=== PATIENT | female | born 1970 ===

== ENCOUNTER 2016-11-11 10:43 | Observation (INO) | payer SELFPAY ==
--- NOTE | 2016-11-11 11:23 | ED PDOC ---
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) Onset/Duration Of Symptoms: Days (7), Intermittent Episodes Current Symptoms Are (Timing): Intermittent Episodes Severity: Moderate Pain Scale Rating Of: 5 Quality: Burning, "Pain" Associated Symptoms: denies: Nausea, Dyspnea, Diaphoresis, Syncope Exacerbating Factors: None Alleviating Factors: None - Risk Factors PE Risk Factors: Neg: Extremity Immobilization/Fx, Decreased Mobilty /Activity, Recent Major Surgery, Recent Hospitalization, Active Cancer, Previous DVT, Previous PE, CHF, Venous Stasis, Estrogen Usage, , Post-, Recent Major Trauma TAD Risk Factors: Neg: Hypertension, Aortic Valve Disease, Active , Sudden Onset Of Pain, Migration Of Pain, New Neurologic Symptoms <Haley Andrade - Last Filed: 11/11/16 12:57> <Mae Kaba - Last Filed: 11/11/16 15:59> Time Seen by Provider: 11/11/16 11:04 Chief Complaint (Nursing): Chest Pain Additional Complaint(s): 46 yo F with PMH of anemia sent by PMD for eval of chest pain. Pt states she has been having intermittent chest pain x 1 week, located in left side of chest , nonradiating, described as burning. No exacerbating or alleviating factors. Pt reports prior hx of chest pain once in the past, 3 months ago when pt was hospitalized for severe anemia. Denies any other medical problems. Nonsmoker. No family hx of cardiac dz. Pt states pain comes and goes and at times is associated with mild dizziness. Has not taken any medication for these symptoms. States when she feels the chest pain/burning, she drinks water and symptoms resolve after some time, spontaneously. (Haley Andrade) Supervising Attending Note - Supervising Attending Note The Documented history was done by the: Physician Supervisor [employer], Attending Physician The documented physical exam was done by the: Physician Supervisor [employer], Attending Physician The documented procedures were done by the: Physician Supervisor [employer], Attending Physician - Attestation: I have personally seen and examined this patient.: Yes I have fully participated in the care of the patient.: Yes I have reviewed all pertinent clinical information: Yes <Mae Kaba - Last Filed: 11/11/16 15:59> Past Medical History Reviewed: Historical Data, Nursing Documentation, Vital Signs - Medical History PMH: Anemia (iron deficiency) - Surgical History Surgical History: - Family History Family History: States: Unknown Family Hx <Haley Andrade - Last Filed: 11/11/16 12:57> <Mae Kaba - Last Filed: 11/11/16 15:59> Vital Signs: Last Vital Signs Temp 97.1 F L 11/11/16 10:53 Pulse 57 L 11/11/16 13:51 Resp 16 11/11/16 13:51 BP 142/90 11/11/16 13:51 Pulse Ox 96 11/11/16 13:00 - Home Medications Home Medications: Ambulatory Orders Medication Instructions Recorded Ferrous Sulfate [Feosol] 325 mg PO BID 11/11/16 - Allergies Allergies/Adverse Reactions: Allergies Allergy/AdvReac Type Severity Reaction Status Date / Time No Known Allergies Allergy Verified 11/11/16 10:53 AMBAR Risk Score for UA/NSTEMI - AMBAR Risk Score Age > 64: NO 3 or more CAD Risk Factors: NO Known CAD (Stenosis greater than 50%): NO Aspirin use in past 7 days: NO Severe Angina: NO EKG ST changes greater than 0.5mm: NO Positive Cardiac Marker: NO AMBAR Score: 0 Risk %: 5% <Haley Andrade - Last Filed: 11/11/16 12:57> Wells Criteria for PE - Wells Criteria for Pulmonary Embolism Clinical Signs and Symptoms of DVT: No P.E is #1 Diagnosis, or Equally Likely: No Heart Rate >100: No Immobilization at least 3 days;Surgery previous 4 weeks: No Previous, objectively diagnosed PE or DVT: No Hemoptysis: No Malignancy w/treatment within 6 months, or palliative: No Total Score: 0 <Haley Andrade - Last Filed: 11/11/16 12:57> Review of Systems Constitutional: Negative for: Fever, Chills Cardiovascular: Positive for: Chest Pain. Negative for: Palpitations Respiratory: Negative for: Cough, SOB with Exertion, Pleuritic Pain Gastrointestinal: Negative for: Nausea, Vomiting, Diarrhea Genitourinary Female: Negative for: Dysuria Musculoskeletal: Negative for: Neck Pain Neurological: Negative for: Weakness, Numbness <RaymondHaley - Last Filed: 11/11/16 12:57> Physical Exam - Reviewed Nursing Documentation Reviewed: Yes Vital Signs Reviewed: Yes - Physical Exam Appears: Positive for: Non-toxic, No Acute Distress Head Exam: Positive for: NORMAL INSPECTION Skin: Positive for: Normal Color, Warm, Dry. Negative for: Diaphoresis Eye Exam: Positive for: Normal appearance ENT: Positive for: Normal ENT Inspection Neck: Positive for: Normal, Painless ROM, Supple Cardiovascular/Chest: Positive for: Regular Rate, Rhythm, Chest Non Tender. Negative for: Gallop, JVD, Murmur, Irregularly Irregular Respiratory: Positive for: Normal Breath Sounds. Negative for: Crackles, Rales , Rhonchi, Wheezing Gastrointestinal/Abdominal: Positive for: Normal Exam, Bowel Sounds (+), Soft. Negative for: Tenderness Extremity: Negative for: Pedal Edema, Calf Tenderness Neurologic/Psych: Positive for: Alert, Oriented <AndradeHaley - Last Filed: 11/11/16 12:57> - Laboratory Results Result Diagrams: 11/11/16 11:43 11/11/16 11:43 - ECG ECG: Positive for: Interpreted By Me, Viewed By Me (d/w Dr. Kaba) Interpretation Of Abn EKG: nonspecific T wave inversions in II, III, aVF, V1, V3 Rate: 57 O2 Sat by Pulse Oximetry: 96 <AndradeJeanineHaley - Last Filed: 11/11/16 12:57> - Laboratory Results Result Diagrams: 11/11/16 11:43 11/11/16 11:43 <Mae Kaba - Last Filed: 11/11/16 15:59> - Progress ED Course And Treament: EKG CXR CBC CMP Troponin Reeval 12:45pm Labs reviewed - Hgb 14, normal Troponin negative CXR no acute disease EKG compared to prior from 08/2016; no T wave inversions in inferior leads in prior EKG Tele observation for further eval/workup Called vice president marketing & development, will admit pt (Haley Andrade) Disposition - Patient ED Disposition Is Patient to be Admitted: Yes - Disposition Disposition Time: 13:00 <Haley Andrade - Last Filed: 11/11/16 12:57> - Patient ED Disposition Is Patient to be Admitted: Yes Discussed With : Jonh Chaudhari Doctor Will See Patient In The: ED Counseled Patient/Family Regarding: Studies Performed, Diagnosis - Pt Status Changed To: Hospital Disposition Of: Observation - POA Present On Arrival: None Core Measure Indicators: Chest Pain <Mae Kaba - Last Filed: 11/11/16 15:59> - Clinical Impression Clinical Impression: Chest pain - Disposition Condition: FAIR
[2016-11-11 11:49] LABS: BASO % 0.9 % (0.0-2.0); EOS # 0.1 K/uL (0.0-0.7); EOS % 2.6 % (0.0-4.0); HEMATOCRIT 42.4 % (34.0-47.0); LYMPH # 1.6 K/uL (1.0-4.3); LYMPH % 40.6 % (20.0-40.0); MEAN CORPUSCULAR HEMOGLOBIN 30.1 pg (27.0-31.0); MEAN PLATELET VOLUME 8.2 fl (7.2-11.7); MONO # 0.4 K/uL (0.0-0.8); MONO % 9.3 % (0.0-10.0); NEUT # 1.8 K/uL (1.8-7.0); NEUT % 46.6 % (50.0-75.0); NRBC % 0.3 % (0.0-0.0); RED CELL DISTRIBUTION WIDTH 16.3 % (11.5-14.5); WHITE BLOOD COUNT 3.9 K/uL (4.8-10.8)
[2016-11-11 11:50] LABS: MEAN CELL VOLUME 91.3 fl (81.0-99.0)
[2016-11-11 12:01] LABS: ALB/GLOB RATIO 1.3 (1.0-2.1); ALKALINE PHOSPHATASE 53 U/L (38-126); ALT/SGPT 37 U/L (9-52); AST/SGOT 29 U/L (14-36); BILIRUBIN,TOTAL 0.3 mg/dl (0.2-1.3); BLOOD UREA NITROGEN 12 mg/dl (7-17); CALCIUM 9.3 mg/dL (8.4-10.2); CARBON DIOXIDE 23 mmol/L (22-30); CHLORIDE 106 mmol/L (98-107); GFR AFRICAN-AMERICAN > 60; GLUCOSE,RANDOM 85 mg/dL (65-105); POTASSIUM 4.1 MMOL/L (3.6-5.0); SODIUM 139 mmol/l (132-148); TOTAL PROTEIN 8.1 G/DL (6.3-8.2)
--- NOTE | 2016-11-11 13:24 | RAD ---
HISTORY: chest pain COMPARISON: No prior. TECHNIQUE: Chest PA and lateral FINDINGS: LUNGS: No active pulmonary disease. PLEURA: No significant pleural effusion identified. No pneumothorax apparent. CARDIOVASCULAR: Normal. OSSEOUS STRUCTURES: No significant abnormalities. VISUALIZED UPPER ABDOMEN: Normal. OTHER FINDINGS: None. IMPRESSION: No active disease.
--- NOTE | 2016-11-11 14:58 | CP.PCM.HP ---
History of Present Illness - History of Present Illness History of Present Illness: This is a 46 y/o female with PMHx of Chronic anemia, Uterine fibroids associated with menorrhagia, who presents complaining of one week left sided, intermittent, burning quality chest pain, no radiating, that started suddenly, as high as 8/10, no aggravated with exertion, no alleviated with rest, but mild relieved with she took Tylenol once, however a second time that she took Tylenol she did not have any relief. Denies nausea, vomiting, SOB, abdominal pain, acid reflux, bitter taste in mouth, recent cold like symptoms, positional changes or changes with respiration or other complains. Patient went to see her PCP at [facility], Dr. Munoz today because her complains, she was sent by PMD to ED for evaluation. PMD: Dr. Pee Grady @ [facility] Allergies: NKDA PMHx: as HPI, s/p 3 units PRBC transfusion and one Iron infusion on previous admission(08/2016) SHx: 1 C- section; Right knee hematoma removal s/p fall Meds:Ferrous Sulfate 325 mg BID GYNHx: LMP: 10/26/16, heavy blood loss during periods, lasting x 6-12 days ED course: VS: 97.1 F, HR: 60/min, BP: 150/92, RR: 19/min, 96 % O2 sat EKG CBC, CMP, troponin I Oxygen by NC, emergency telecommunications dispatcher continuos, aspirin 325 mg stat Present on Admission - Present on Admission Any Indicators Present on Admission: No History of DVT/PE: No History of Uncontrolled Diabetes: No Urinary Catheter: No Decubitus Ulcer Present: No Review of Systems - Review of Systems All systems: reviewed and no additional remarkable complaints except (as per HPI ) Past Patient History - Past Medical History & Family History Past Medical History?: No - Past Social History Smoking Status: Never Smoked - HEMATOLOGICAL/ONCOLOGICAL Hx Blood Disorders: Yes (anemia) - MUSCULOSKELETAL/RHEUMATOLOGICAL Hx Falls: No - PSYCHIATRIC Hx Substance Use: No - SURGICAL HISTORY Hx Surgeries: No - ANESTHESIA Hx Anesthesia: Yes Hx Anesthesia Reactions: No Meds Allergies/Adverse Reactions: Allergies Allergy/AdvReac Type Severity Reaction Status Date / Time No Known Allergies Allergy Verified 11/11/16 10:53 Physical Exam - Constitutional Appears: Non-toxic, No Acute Distress - Eye Exam Eye Exam: Normal appearance - ENT Exam ENT Exam: Mucous Membranes Moist - Respiratory Exam Respiratory Exam: Clear to Auscultation Bilateral, NORMAL BREATHING PATTERN - Cardiovascular Exam Cardiovascular Exam: REGULAR RHYTHM, RRR, +S1, +S2 - GI/Abdominal Exam GI & Abdominal Exam: Normal Bowel Sounds, Soft. absent: Distended, Rigid, Tenderness - Extremities Exam Extremities exam: Positive for: normal inspection. Negative for: calf tenderness, pedal edema - Back Exam Back exam: NORMAL INSPECTION. absent: CVA tenderness (L), CVA tenderness (R) - Neurological Exam Neurological exam: Alert, Oriented x3 - Psychiatric Exam Psychiatric exam: Normal Affect, Normal Mood - Skin Skin Exam: Dry, Intact, Normal Color - Additional Findings Additional findings: Mild tenderness to palpation of left upper chest, no rash, vesicles or lesions noted on overlying skin Results - Vital Signs Recent Vital Signs: Last Vital Signs Temp 97.1 F L 11/11/16 10:53 Pulse 57 L 11/11/16 13:51 Resp 16 11/11/16 13:51 BP 142/90 11/11/16 13:51 Pulse Ox 96 11/11/16 13:00 - Labs Result Diagrams: 11/11/16 11:43 11/11/16 11:43 Assessment & Plan - Assessment and Plan (Free Text) Assessment: 46 y/o female with PMHx of Chronic anemia, Uterine fibroids associated with menorrhagia, presenting with one week history of left sided chest pain admitted to r/o ACS. Plan: Atypical chest pain R/O Acute coronary syndrome -Improved since presentation, now asymptomatic -EKG at ED showed multiple leads with T wave inversion, no ST changes noted -Good oxygen Saturation in room air -s/p Aspirin 325 mg PO once STAT at ED -Troponin I at ED was negative -F/U Troponin I x 2 -F/U clinical status -CBC:WNL, except for mild decreased WBC -CMP: WNL Leucopenia in CBC -Afebrile, no S/S of immunosupression -F/U repeat CBC: WBC H/O Chronic anemia -Resolved -Most likely was secondary to Uterine fibroid associated to Menorrhagia -c/w Ferrous sulfate 325 mg PO BID - Date & Time Date: 11/11/16 Time: 15:00
[2016-11-12 06:07] VITALS: RESP 18
[2016-11-12 07:09] LABS: BASO % 1.2 % (0.0-2.0); EOS # 0.1 K/uL (0.0-0.7); EOS % 3.4 % (0.0-4.0); HEMATOCRIT 43.3 % (34.0-47.0); LYMPH % 50.6 % (20.0-40.0); MEAN CELL VOLUME 91.5 fl (81.0-99.0); MEAN CORPUSCULAR HEMOGLOBIN 29.9 pg (27.0-31.0); MEAN CORPUSCULAR HGB CONC 32.6 g/dL (33.0-37.0); MEAN PLATELET VOLUME 8.7 fl (7.2-11.7); MONO # 0.4 K/uL (0.0-0.8); MONO % 10.6 % (0.0-10.0); NEUT # 1.4 K/uL (1.8-7.0); NEUT % 34.2 % (50.0-75.0); NRBC % 0.1 % (0.0-0.0); RED CELL DISTRIBUTION WIDTH 16.1 % (11.5-14.5)
[2016-11-12 08:23] VITALS: BP 114/74; PULSE 62; TEMP 98.3; O2SAT 98
--- NOTE | 2016-11-12 09:37 | CP.PCM.DIS ---
Provider - Provider Date of Admission: 11/11/16 12:56 Attending physician: Cherie Howe MD Time Spent in preparation of Discharge (in minutes): 30 Diagnosis - Discharge Diagnosis (1) Chest pain Status: Acute Priority: High Comment: ACS was ruled out during current admission, most likely musculoskeletal etiology. Asymtomatic. F/U with PMD was recommended. Prescription for treadmill stress test was given. (2) History of anemia Status: Chronic Priority: Low Comment: Resolved. Asymptomatic. H/H was WNL. Ferrous sulfate was stopped. Hospital Course - Lab Results Lab Results: Most Recent Lab Values WBC 4.0 K/uL (4.8-10.8) L 11/12/16 05:45 RBC 4.74 Mil/uL (3.80-5.20) 11/12/16 05:45 Hgb 14.1 g/dL (12.0-16.0) 11/12/16 05:45 Hct 43.3 % (34.0-47.0) 11/12/16 05:45 MCV 91.5 fl (81.0-99.0) 11/12/16 05:45 MCH 29.9 pg (27.0-31.0) 11/12/16 05:45 MCHC 32.6 g/dL (33.0-37.0) L 11/12/16 05:45 RDW 16.1 % (11.5-14.5) H 11/12/16 05:45 Plt Count 231 K/uL (130-400) 11/12/16 05:45 MPV 8.7 fl (7.2-11.7) 11/12/16 05:45 Neut % (Auto) 34.2 % (50.0-75.0) L 11/12/16 05:45 Lymph % (Auto) 50.6 % (20.0-40.0) H 11/12/16 05:45 [place] % (Auto) 10.6 % (0.0-10.0) H 11/12/16 05:45 Eos % (Auto) 3.4 % (0.0-4.0) 11/12/16 05:45 Baso % (Auto) 1.2 % (0.0-2.0) 11/12/16 05:45 Neut # 1.4 K/uL (1.8-7.0) L 11/12/16 05:45 Lymph # 2.0 K/uL (1.0-4.3) 11/12/16 05:45 [place] # 0.4 K/uL (0.0-0.8) 11/12/16 05:45 Eos # 0.1 K/uL (0.0-0.7) 11/12/16 05:45 Baso # 0.0 K/uL (0.0-0.2) 11/12/16 05:45 Sodium 139 mmol/l (132-148) 11/11/16 11:43 Potassium 4.1 MMOL/L (3.6-5.0) 11/11/16 11:43 Chloride 106 mmol/L (98-107) 11/11/16 11:43 Carbon Dioxide 23 mmol/L (22-30) 11/11/16 11:43 Anion Gap 14 (10-20) 11/11/16 11:43 BUN 12 mg/dl (7-17) 11/11/16 11:43 Creatinine 0.8 mg/dL (0.7-1.2) 11/11/16 11:43 Est GFR ( Amer) > 60 11/11/16 11:43 Est GFR (Non-Af Amer) > 60 11/11/16 11:43 Random Glucose 85 mg/dL (65-105) 11/11/16 11:43 Calcium 9.3 mg/dL (8.4-10.2) 11/11/16 11:43 Total Bilirubin 0.3 mg/dl (0.2-1.3) 11/11/16 11:43 AST 29 U/L (14-36) 11/11/16 11:43 ALT 37 U/L (9-52) 11/11/16 11:43 Alkaline Phosphatase 53 U/L (38-126) 11/11/16 11:43 Troponin I < 0.0120 ng/mL (0.00-0.120) 11/12/16 05:45 Total Protein 8.1 G/DL (6.3-8.2) 11/11/16 11:43 Albumin 4.6 g/dL (3.5-5.0) 11/11/16 11:43 Globulin 3.5 gm/dL (2.2-3.9) 11/11/16 11:43 Albumin/Globulin Ratio 1.3 (1.0-2.1) 11/11/16 11:43 - Hospital Course Hospital Course: This is 46 y/o female with PMHx of Uterine fibroids associated with Menorrhagia , and resolved chronic anemia secondary to heavy menstrual periods who presented to ED complaining of chest pain. EKG done showed diffuse T wave inversion, but no ST changes, and patient was admitted for observation to r/o ACS. During admission vital signs were WNL, labs unremarkable, and Troponin x 3 negative. Patient was managed aspirin and Nitroglycerin sublingual as needed. ACS was ruled out during admission. Patient was seen and examined at bedside this morning. Patient denies chest pain, SOB, nausea, vomiting or any complains. Patient is stable to be discharge home today and will follow with PMD at [facility] and prescription for treadmill stress test as outpatient was provided. Home medication: None. Discontinued Ferrous sulfate due to H/H: WNL. No continued on aspirin PO because patient is low risk for CAD, will follow up as outpatient. - Date & Time of H&P Date of H&P: 11/11/16 Time of H&P: 14:55 Discharge Exam - Head Exam Head Exam: NORMAL INSPECTION - ENT Exam ENT Exam: Mucous Membranes Moist - Respiratory Exam Respiratory Exam: Clear to PA & Lateral, NORMAL BREATHING PATTERN, UNREMARKABLE - Cardiovascular Exam Cardiovascular Exam: REGULAR RHYTHM, +S1, +S2 - GI/Abdominal Exam GI & Abdominal Exam: Normal Bowel Sounds, Soft. absent: Tenderness - Extremities Exam Additional comments: No edema in lower extremities. No calf tenderness noted. Ellen's sign negative bilateral. Peripheral pulses present and bilateral. - Neurological Exam Neurological exam: Alert, Oriented x3 - Psychiatric Exam Psychiatric exam: Normal Affect, Normal Mood - Skin Skin Exam: Dry, Intact, Normal Color - Additional Findings Additional findings: Mild tenderness to palpation of left upper chest. Pain reproduced with palpation. Discharge Plan - Follow Up Plan Condition: FAIR Disposition: HOME/ ROUTINE Instructions: Chest Pain (DC) Additional Instructions: -F/U with PMD at [facility], Dr. Pee Grady as outpatient -F/U with Cardiology for Treadmill Stress test as outpatient
--- NOTE | 2016-11-12 13:41 | CARD ---
APPROVED REPORT EKG Measurement Heart [id number] <Conclusion> Sinus bradycardia Left axis deviation Incomplete right bundle branch block T wave abnormality, consider lateral ischemia Abnormal ECG
== END 2016-11-12 15:15 | disposition home or self-care (01) ==
LOC: H.ER 10:43 → H.ERHOLD 12:56 → H.TEL 14:29
PROVIDERS: ADMIT Family Medicine Geriatric Medicine; ATTEND Family Medicine Geriatric Medicine
DX: R07.9 Chest pain, unspecified (principal); D25.9 Leiomyoma of uterus, unspecified; D50.9 Iron deficiency anemia, unspecified; D72.819 Decreased white blood cell count, unspecified; N92.0 Excessive and frequent menstruation with regular cycle

== ENCOUNTER 2017-11-29 18:17 | Emergency (ER) | payer OTHER, SELFPAY ==
[2017-11-29 18:17] VITALS: BMI 28.3
[2017-11-29 18:31] VITALS: BP 145/85; PULSE 93; RESP 20; O2SAT 100
[2017-11-29] MEDS ORDERED: Sodium Chloride 0.9% 1,000 ML IV STA (18:48)
--- NOTE | 2017-11-29 18:52 | ED PDOC ---
HPI: General Adult Time Seen by Provider: 11/29/17 18:40 Chief Complaint (Nursing): Fever Chief Complaint (Provider): Fever History Per: Patient, Family History/Exam Limitations: no limitations Additional Complaint(s): Pt reports fever X 3 days, associated with bodyaches, joint pain, nonproductive cough and DOUGLAS. Last took Advil yesterday. Denies sore throat, ear pain, CP, SOB , palpitations, n/v, abdominal pain, diarrhea, symptoms, neck stiffness. Past Medical History Reviewed: Nursing Documentation, Vital Signs Vital Signs: Last Vital Signs Temp 99.4 F 11/29/17 19:58 Pulse 93 H 11/29/17 18:28 Resp 20 11/29/17 18:28 BP 145/85 11/29/17 18:28 Pulse Ox 100 11/29/17 21:16 - Medical History PMH: Anemia Denies: Chronic Kidney Disease - Surgical History Surgical History: - Family History Family History: States: Unknown Family Hx - Living Arrangements Living Arrangements: With Family - Social History Current smoker - smoking cessation education provided: No Alcohol: None - Home Medications Home Medications: Ambulatory Orders Medication Instructions Recorded Ferrous Sulfate [Feosol] 325 mg PO DAILY 05/11/17 Norethindrone [Indu] 0.35 PO DAILY 05/11/17 Pantoprazole [Protonix EC Tab] 20 mg PO DAILY ect 05/12/17 Acetaminophen [Tylenol 325mg tab] 2 tab PO Q4H PRN #20 tab 11/29/17 Ibuprofen [Motrin] 600 mg PO Q6H PRN #20 tab 11/29/17 - Allergies Allergies/Adverse Reactions: Allergies Allergy/AdvReac Type Severity Reaction Status Date / Time No Known Allergies Allergy Verified 11/29/17 18:27 Review of Systems Constitutional: Positive for: Fever. Negative for: Chills, Weakness, Malaise ENT: Negative for: Ear Pain, Nose Discharge, Nose Congestion, Throat Pain, Throat Swelling Cardiovascular: Negative for: Chest Pain, Palpitations Respiratory: Positive for: Cough. Negative for: Shortness of Breath, Sputum, Wheezing Gastrointestinal: Negative for: Nausea, Vomiting, Abdominal Pain, Diarrhea Genitourinary Female: Negative for: Dysuria, Hematuria Musculoskeletal: Positive for: Arm Pain, Back Pain, Leg Pain Skin: Negative for: Rash, Lesions Neurological: Positive for: Headache. Negative for: Weakness, Numbness, Incoordination, Change in Speech, Confusion, Seizures, Altered Mental Status, Dizziness Physical Exam - Reviewed Nursing Documentation Reviewed: Yes Vital Signs Reviewed: Yes - Physical Exam Appears: Positive for: Well, No Acute Distress Head Exam: Positive for: ATRAUMATIC, NORMAL INSPECTION Skin: Positive for: Normal Color, Warm, Dry Eye Exam: Positive for: Normal appearance, EOMI, PERRL ENT: Positive for: Pharynx Is (Clear). Negative for: Sinus Pain/Drainage, Nasal Congestion, Tonsillar Exudate, Tonsillar Swelling Neck: Positive for: Normal, Painless ROM, Supple Cardiovascular/Chest: Positive for: Regular Rate, Rhythm Respiratory: Positive for: Normal Breath Sounds. Negative for: Rales, Rhonchi, Wheezing Gastrointestinal/Abdominal: Positive for: Normal Exam, Bowel Sounds, Soft. Negative for: Tenderness Back: Positive for: Normal Inspection. Negative for: L CVA Tenderness, R CVA Tenderness Extremity: Positive for: Normal ROM Neurologic/Psych: Positive for: Alert, professional employer consultant II-XII, Oriented. Negative for: Motor/Sensory Deficits - Laboratory Results Result Diagrams: 11/29/17 19:00 11/29/17 19:00 - ECG O2 Sat by Pulse Oximetry: 100 Pulse Ox Interpretation: Normal - Radiology X-Ray: Interpreted by De X-Ray Interpretation: No Acute Disease - Progress Re-evaluation Time: 21:11 Condition: Improved (Remains without meningeal signs, feels better. ) Medical Decision Making Medical Decision Makin yo female with fever, myalgias, arthralgias, DOUGLAS and nonproductive cough. - labs - EKG - CXR - IVF - Motrin - Tylenol Disposition - Clinical Impression Clinical Impression: Fever in adult - Patient ED Disposition Is Patient to be Admitted: No - Disposition Referrals: [facility] [Outside] [facility] [place] [Outside] Disposition: Routine/Home Disposition Time: 21:12 Condition: IMPROVED Prescriptions: Acetaminophen [Tylenol 325mg tab] 2 tab PO Q4H PRN #20 tab PRN Reason: Fever >100.4 F Ibuprofen [Motrin] 600 mg PO Q6H PRN #20 tab PRN Reason: Pain, Moderate (4-7) Instructions: Fever, Adult (DC) Forms: [facility] (English) Print Language: FAROESE
[2017-11-29 19:10] LABS: SQUAMOUS EPITHIAL 4 /hpf (0-5); URINE BACTERIA RARE (<OCC); URINE BILIRUBIN NEGATIVE (NEGATIVE); URINE BLOOD SMALL (NEGATIVE); URINE CLARITY CLOUDY (Clear); URINE COLOR BLUE (YELLOW); URINE GLUCOSE (UA) NEG (Normal); URINE LEUKOCYTE ESTERASE NEG Leu/uL (Negative); URINE PROTEIN 100 mg/dL (NEGATIVE); URINE UROBILINOGEN 0.2-1.0 mg/dL (0.2-1.0)
[2017-11-29 19:25] LABS: BASO % 0.4 % (0.0-2.0); HEMOGLOBIN 10.9 g/dL (12.0-16.0); LYMPH # 0.5 K/uL (1.0-4.3); LYMPH % 11.2 % (20.0-40.0); MEAN CELL VOLUME 91.6 fl (81.0-99.0); MEAN CORPUSCULAR HEMOGLOBIN 30.7 pg (27.0-31.0); MEAN CORPUSCULAR HGB CONC 33.5 g/dL (33.0-37.0); MEAN PLATELET VOLUME 8.4 fl (7.2-11.7); MONO # 0.9 K/uL (0.0-0.8); MONO % 21.1 % (0.0-10.0); NEUT % 67.3 % (50.0-75.0); NRBC % 0.1 % (0.0-0.0); PLATELET COUNT 204 K/uL (130-400); RBC 3.54 Mil/uL (3.80-5.20); WHITE BLOOD COUNT 4.5 K/uL (4.8-10.8)
[2017-11-29 19:28] LABS: VENOUS BLOOD GAS BASE EXCESS 1.1 mmol/L (0.0-2.0); VENOUS BLOOD GAS PCO2 37 mmHg (40-60); VENOUS BLOOD GAS PO2 21 mm/Hg (30-55); VENOUS BLOOD PH 7.44 (7.32-7.43)
[2017-11-29 19:28] LABS: ALB/GLOB RATIO 1.2 (1.0-2.1); ALT/SGPT 38 U/L (9-52); AST/SGOT 35 U/L (14-36); BLOOD UREA NITROGEN 14 mg/dl (7-17); CALCIUM 8.7 mg/dL (8.4-10.2); GFR AFRICAN-AMERICAN > 60; GFR NON-AFRICAN AMERICAN > 60
[2017-11-29 19:57] LABS: LYMPHOCYTE 7 % (20-50); MONOCYTE 16 % (0-10); NEUTROPHIL 77 % (42-75); TOTAL CELLS COUNTED 100
[2017-11-29 19:58] LABS: ANISOCYTOSIS SLIGHT; PLATELET ESTIMATE NORMAL (NORMAL)
[2017-11-29 20:07] VITALS: TEMP 99.4
--- NOTE | 2017-11-30 08:31 | RAD ---
HISTORY: COMPARISON: 05/11/2017. TECHNIQUE: Chest PA and lateral FINDINGS: LINES AND TUBES: None. LUNG AND PLEURA: The lungs are well inflated and clear. No pleural effusion or pneumothorax. HEART AND MEDIASTINUM: The heart is not enlarged. The hilar and mediastinal contours are within normal limits. SKELETAL STRUCTURES: The bony structures are within normal limits for the patient's age. VISUALIZED UPPER ABDOMEN: Normal. OTHER FINDINGS: None. IMPRESSION: No active pulmonary disease.
== END 2017-11-29 21:28 | disposition home or self-care (01) ==
LOC: H.ER 18:17
DX: R50.9 Fever, unspecified (principal)
CPT/HCPCS: 71046; 80053; 81003; 81025; 82803; 85025; 87040; 87804; 96360; 99285; J7040

== ENCOUNTER 2018-04-30 10:55 | Observation (INO) | payer SELFPAY ==
[2018-04-30 11:01] VITALS: BMI 27.8
[2018-04-30 11:03] VITALS: O2SAT 100
--- NOTE | 2018-04-30 11:51 | ED PDOC ---
HPI: General Adult Time Seen by Provider: 04/30/18 11:46 Chief Complaint (Nursing): Dizziness/Lightheaded Chief Complaint (Provider): dizziness, headache History Per: Patient, Family (Daughter at bedside is translating for patient in Welsh) Additional Complaint(s): 47-year-old female with history of uterine fibroids and anemia presents with d izziness and weakness for 1 week. Patient was seen yesterday by her primary doctor and sent to ER for further evaluation of low hemoglobin. Patient has history of anemia and her last transfusion was in August of 2015. She also has history of heavy menses secondary to fibroids. She denies abdominal pain at this time. Patient states she also woke up today with pain to posterior neck, denies fall or trauma. PMD: Dr. Springer Past Medical History Reviewed: Historical Data, Nursing Documentation, Vital Signs Vital Signs: Last Vital Signs Temp 98.5 F 04/30/18 11:01 Pulse 71 04/30/18 11:01 Resp 20 04/30/18 11:01 BP 162/81 H 04/30/18 11:01 Pulse Ox 100 04/30/18 11:01 - Medical History PMH: Anemia - Surgical History Surgical History: - Family History Family History: States: No Known Family Hx - Living Arrangements Living Arrangements: With Family - Social History Current smoker - smoking cessation education provided: No Alcohol: None Drugs: Denies - Home Medications Home Medications: Ambulatory Orders Medication Instructions Recorded hydrOXYzine HCl [Atarax] 1 tab PO TID 04/30/18 - Allergies Allergies/Adverse Reactions: Allergies Allergy/AdvReac Type Severity Reaction Status Date / Time No Known Allergies Allergy Verified 04/30/18 11:21 Review of Systems ROS Statement: Except As Marked, All Systems Reviewed And Found Negative Constitutional: Positive for: Weakness. Negative for: Fever, Chills Cardiovascular: Negative for: Chest Pain Gastrointestinal: Negative for: Nausea Musculoskeletal: Positive for: Neck Pain Neurological: Positive for: Headache, Dizziness Physical Exam - Reviewed Nursing Documentation Reviewed: Yes Vital Signs Reviewed: Yes - Physical Exam Appears: Positive for: Well, Non-toxic, No Acute Distress Skin: Positive for: Normal Color. Negative for: Rash Eye Exam: Positive for: Normal appearance Cardiovascular/Chest: Positive for: Regular Rate, Rhythm Respiratory: Positive for: Normal Breath Sounds. Negative for: Wheezing, Respiratory Distress Gastrointestinal/Abdominal: Positive for: Soft. Negative for: Tenderness, Distended, Guarding, Rebound Extremity: Positive for: Normal ROM Neurologic/Psych: Positive for: Alert, Oriented - Laboratory Results Result Diagrams: 04/30/18 12:40 04/30/18 12:40 Urine POC: Negative Urine dip results: Negative for: Leukocyte Esterase, Blood, Nitrate, Ketones, Glucose, Bilirubin, Protein - ECG Interpretation Of ECG: NSR 63 bpm, no acute changes, reviewed by PA and ED attending. O2 Sat by Pulse Oximetry: 100 Pulse Ox Interpretation: Normal - Other Rad CXR X-Ray: Interpreted by Me, Viewed By Me X-Ray Interpretation: no acute finding Medical Decision Making Medical Decision Makin47 year old with dizziness, and history of anemia Plan: EKG CXR CBC CMP PT/PTT IVF PO tylenol Hemoglobin of 6.5 noted, type and cross ordered along with 2 units of packed red blood cells. Patient consented for transfusion. Patient has no primary doctor, case discussed with hospitalist Dr. Bob. Patient admitted to telemetry for observation. Patient is aware of and agrees with plan. Disposition - Clinical Impression Clinical Impression: Anemia - Patient ED Disposition Is Patient to be Admitted: Yes - Disposition Disposition Time: 15:25 Condition: FAIR - Pt Status Changed To: Hospital Disposition Of: Observation Results - Lab Results Lab Results: 04/30/18 04/30/18 04/30/18 12:40 12:40 12:40 WBC RBC Hgb Hct MCV MCH MCHC RDW Plt Count MPV Neut % (Auto) Lymph % (Auto) [place] % (Auto) Eos % (Auto) Baso % (Auto) Neut # (Auto) Lymph # (Auto) [place] # (Auto) Eos # (Auto) Baso # (Auto) PT 11.1 INR 1.0 APTT 27.8 Sodium 139 Potassium 4.2 Chloride 108 H Carbon Dioxide 21 L Anion Gap 14 BUN 14 Creatinine 0.9 Est GFR ( Amer) > 60 Est GFR (Non-Af Amer) > 60 Random Glucose 85 Calcium 8.8 Total Bilirubin 0.3 AST 45 H D ALT 33 Alkaline Phosphatase 48 Total Protein 8.2 Albumin 4.3 Globulin 3.8 Albumin/Globulin Ratio 1.1 Blood Type B POSITIVE Antibody Screen Negative Crossmatch See Detail BBK History Checked Patient has bt 04/30/18 12:40 WBC 4.1 L RBC 3.42 L Hgb 6.5 L* D Hct 22.2 L MCV 64.7 L D MCH 19.1 L MCHC 29.5 L RDW 19.2 H Plt Count 450 H D MPV 7.6 Neut % (Auto) 43.7 L Lymph % (Auto) 40.8 H [place] % (Auto) 10.5 H Eos % (Auto) 3.5 Baso % (Auto) 1.5 Neut # (Auto) 1.8 Lymph # (Auto) 1.7 [place] # (Auto) 0.4 Eos # (Auto) 0.1 Baso # (Auto) 0.1 PT INR APTT Sodium Potassium Chloride Carbon Dioxide Anion Gap BUN Creatinine Est GFR ( Amer) Est GFR (Non-Af Amer) Random Glucose Calcium Total Bilirubin AST ALT Alkaline Phosphatase Total Protein Albumin Globulin Albumin/Globulin Ratio Blood Type Antibody Screen Crossmatch BBK History Checked
[2018-04-30] MEDS ORDERED: Sodium Chloride 0.9% 1,000 ML IV STA (12:22)
[2018-04-30 12:58] LABS: BASO # 0.1 K/uL (0.0-0.2); BASO % 1.5 % (0.0-2.0); EOS # 0.1 K/uL (0.0-0.7); EOS % 3.5 % (0.0-4.0); LYMPH # 1.7 K/uL (1.0-4.3); LYMPH % 40.8 % (20.0-40.0); MEAN CELL VOLUME 64.7 fl (81.0-99.0); MEAN CORPUSCULAR HEMOGLOBIN 19.1 pg (27.0-31.0); MEAN CORPUSCULAR HGB CONC 29.5 g/dL (33.0-37.0); MEAN PLATELET VOLUME 7.6 fl (7.2-11.7); MONO # 0.4 K/uL (0.0-0.8); MONO % 10.5 % (0.0-10.0); NEUT # 1.8 K/uL (1.8-7.0); NEUT % 43.7 % (50.0-75.0); NRBC % 0.3 % (0.0-0.0); RBC 3.42 Mil/uL (3.80-5.20); RED CELL DISTRIBUTION WIDTH 19.2 % (11.5-14.5); WHITE BLOOD COUNT 4.1 K/uL (4.8-10.8)
[2018-04-30 13:02] LABS: HEMOGLOBIN 6.5 g/dL (12.0-16.0); PROTHROMBIN TIME 11.1 Seconds (9.8-13.1)
[2018-04-30 13:04] LABS: PARTIAL THROMBOPLASTIN TIME 27.8 Seconds (25.6-37.1)
[2018-04-30 13:06] LABS: ALB/GLOB RATIO 1.1 (1.0-2.1); ALBUMIN 4.3 g/dL (3.5-5.0); ALT/SGPT 33 U/L (9-52); AST/SGOT 45 U/L (14-36); BLOOD UREA NITROGEN 14 mg/dl (7-17); CALCIUM 8.8 mg/dL (8.4-10.2); GFR NON-AFRICAN AMERICAN > 60
--- NOTE | 2018-04-30 14:27 | RAD ---
Date of service: 04/30/2018 HISTORY: clearance COMPARISON: 11/29/2017. FINDINGS: LUNGS: No active pulmonary disease. PLEURA: No significant pleural effusion identified, no pneumothorax apparent. CARDIOVASCULAR: No atherosclerotic calcification present Normal. OSSEOUS STRUCTURES: No significant abnormalities. VISUALIZED UPPER ABDOMEN: Normal. OTHER FINDINGS: None. IMPRESSION: No active disease. No significant interval change compared to the prior examination(s).
--- NOTE | 2018-04-30 14:40 | CP.PCM.HP ---
Addendum entered and electronically signed by Maria Victoria Staples MD 04/30/18 16:59: Voyce [id number] Original Note: <Maria Victoria Staples - Last Filed: 04/30/18 15:01> History of Present Illness - History of Present Illness History of Present Illness: CC: fatigue and weakness HPI: 47 YO female with PMHx of uterine fibroids and abnormal uterine bleeding presents to [facility] ED for fatigue and weakness. Pt states that she has been feeling tired for the past days but her symptoms worsened over the past two days. Currently on her period, states that she gets her period 2x a month lasting about 10 days each time. First 4 days periods require 1pad every 3-4hrs and the last few days 1 pad a day. Not associated with any abdominal pain or discomfort. Pt is currently on her period, spotting. Denies chest pain, dyspnea, palpitations, headache, n/v/d/c, fever, chills. Of note, pt has had similar multiple admissions requiring blood transfusions. PMH: uterine fibroids and abnormal uterine bleeding SurgHx: C/S and Knee surgery GYNhx: LMP: currently has; lasts 10 days, 2x a month, 1pad q3-4hrs x first 4 days FHx: mother and father has HTN Social hx: lives with family, denies tabacco, alcohol, or drug use Allergies: NKDA Meds: FeSol Present on Admission - Present on Admission Any Indicators Present on Admission: No Review of Systems - Constitutional Constitutional: Malaise. absent: Headache - Cardiovascular Cardiovascular: absent: Chest Pain, Dyspnea, Palpitations - Respiratory Respiratory: absent: Cough, Dyspnea - Gastrointestinal Gastrointestinal: absent: Abdominal Pain, Nausea, Vomiting - Genitourinary Genitourinary: absent: Difficulty Urinating, Dysuria - Reproductive: Female Reproductive:Female: Menses >/= 8 Days, Heavy Menses - Neurological Neurological: Dizziness Past Patient History - Infectious Disease Hx of Infectious Diseases: None - Past Medical History & Family History Past Medical History?: Yes - Past Social History Alcohol: None Drugs: Denies - CARDIAC Hx Cardiac Disorders: No - PULMONARY Hx Respiratory Disorders: No - NEUROLOGICAL Hx Neurological Disorder: No - HEENT Hx HEENT Problems: No - RENAL Hx Chronic Kidney Disease: No - ENDOCRINE/METABOLIC Hx Endocrine Disorders: No - HEMATOLOGICAL/ONCOLOGICAL Hx Anemia: Yes - INTEGUMENTARY Hx Dermatological Problems: No - MUSCULOSKELETAL/RHEUMATOLOGICAL Hx Musculoskeletal Disorders: Yes Hx Falls: Yes - GASTROINTESTINAL Hx Gastrointestinal Disorders: No - GENITOURINARY/GYNECOLOGICAL Hx Genitourinary Disorders: No - PSYCHIATRIC Hx Psychophysiologic Disorder: No Hx Substance Use: No - SURGICAL HISTORY Hx Surgeries: Yes Hx Section: Yes Other/Comment: Right knee hematoma removal - ANESTHESIA Hx Anesthesia: Yes Hx Anesthesia Reactions: No Meds Allergies/Adverse Reactions: Allergies Allergy/AdvReac Type Severity Reaction Status Date / Time No Known Allergies Allergy Verified 04/30/18 11:21 Results - Vital Signs Recent Vital Signs: Last Vital Signs Temp 98.5 F 04/30/18 11:01 Pulse 71 04/30/18 11:01 Resp 20 04/30/18 11:01 BP 162/81 H 04/30/18 11:01 Pulse Ox 100 04/30/18 13:05 - Labs Result Diagrams: 04/30/18 12:40 04/30/18 12:40 Labs: Laboratory Results - last 24 hr 04/30/18 04/30/18 04/30/18 12:40 12:40 12:40 WBC 4.1 L RBC 3.42 L Hgb 6.5 L* D Hct 22.2 L MCV 64.7 L D MCH 19.1 L MCHC 29.5 L RDW 19.2 H Plt Count 450 H D MPV 7.6 Neut % (Auto) 43.7 L Lymph % (Auto) 40.8 H [place] % (Auto) 10.5 H Eos % (Auto) 3.5 Baso % (Auto) 1.5 Neut # (Auto) 1.8 Lymph # (Auto) 1.7 [place] # (Auto) 0.4 Eos # (Auto) 0.1 Baso # (Auto) 0.1 PT 11.1 INR 1.0 APTT 27.8 Sodium 139 Potassium 4.2 Chloride 108 H Carbon Dioxide 21 L Anion Gap 14 BUN 14 Creatinine 0.9 Est GFR ( Amer) > 60 Est GFR (Non-Af Amer) > 60 Random Glucose 85 Calcium 8.8 Total Bilirubin 0.3 AST 45 H D ALT 33 Alkaline Phosphatase 48 Total Protein 8.2 Albumin 4.3 Globulin 3.8 Albumin/Globulin Ratio 1.1 Blood Type Antibody Screen Crossmatch BBK History Checked 04/30/18 12:40 WBC RBC Hgb Hct MCV MCH MCHC RDW Plt Count MPV Neut % (Auto) Lymph % (Auto) [place] % (Auto) Eos % (Auto) Baso % (Auto) Neut # (Auto) Lymph # (Auto) [place] # (Auto) Eos # (Auto) Baso # (Auto) PT INR APTT Sodium Potassium Chloride Carbon Dioxide Anion Gap BUN Creatinine Est GFR ( Amer) Est GFR (Non-Af Amer) Random Glucose Calcium Total Bilirubin AST ALT Alkaline Phosphatase Total Protein Albumin Globulin Albumin/Globulin Ratio Blood Type B POSITIVE Antibody Screen Negative Crossmatch See Detail BBK History Checked Patient has bt Assessment & Plan - Assessment and Plan (Free Text) Assessment: Assessment/Plan: 47 YO female with PMHx of uterine fibroids and abnormal uterine bleeding is admitted for symptomatic anemia. Symptomatic Anemia -acute on chronic -likely 2/2 to AUB and iron deficiency, Microcytic anemia -EKG, NSR with rate of 63, no acute ST changes noted -CXR neg for cardiopulmonary findings -will transfuse 2 units of PRBC -follow up post-transfusion cbc -follow up iron studies AUB -chronic -likely 2/2 uterine fibroids as noted on TVUS and MRI 2016; multiple fibroids measuring up to 4.1cm. -Seen by Dr. Rushing in the past, failed to follow up -follow up [facility] advised DVT prop -SCDs, ambulatory <Fartun Bob - Last Filed: 04/30/18 17:47> Results - Vital Signs Recent Vital Signs: Last Vital Signs Temp 98.7 F 04/30/18 15:45 Pulse 66 04/30/18 15:45 Resp 100 H 04/30/18 15:45 BP 142/83 04/30/18 15:45 Pulse Ox 100 04/30/18 15:25 - Labs Result Diagrams: 04/30/18 12:40 04/30/18 12:40 Labs: Laboratory Results - last 24 hr 04/30/18 04/30/18 04/30/18 12:40 12:40 12:40 WBC 4.1 L RBC 3.42 L Hgb 6.5 L* D Hct 22.2 L MCV 64.7 L D MCH 19.1 L MCHC 29.5 L RDW 19.2 H Plt Count 450 H D MPV 7.6 Neut % (Auto) 43.7 L Lymph % (Auto) 40.8 H [place] % (Auto) 10.5 H Eos % (Auto) 3.5 Baso % (Auto) 1.5 Neut # (Auto) 1.8 Lymph # (Auto) 1.7 [place] # (Auto) 0.4 Eos # (Auto) 0.1 Baso # (Auto) 0.1 PT 11.1 INR 1.0 APTT 27.8 Sodium 139 Potassium 4.2 Chloride 108 H Carbon Dioxide 21 L Anion Gap 14 BUN 14 Creatinine 0.9 Est GFR ( Amer) > 60 Est GFR (Non-Af Amer) > 60 Random Glucose 85 Calcium 8.8 Iron TIBC % Saturation Ferritin Total Bilirubin 0.3 AST 45 H D ALT 33 Alkaline Phosphatase 48 Total Protein 8.2 Albumin 4.3 Globulin 3.8 Albumin/Globulin Ratio 1.1 Blood Type Antibody Screen Crossmatch BBK History Checked 04/30/18 04/30/18 04/30/18 12:40 16:48 16:48 WBC RBC Hgb Hct MCV MCH MCHC RDW Plt Count MPV Neut % (Auto) Lymph % (Auto) [place] % (Auto) Eos % (Auto) Baso % (Auto) Neut # (Auto) Lymph # (Auto) [place] # (Auto) Eos # (Auto) Baso # (Auto) PT INR APTT Sodium Potassium Chloride Carbon Dioxide Anion Gap BUN Creatinine Est GFR ( Amer) Est GFR (Non-Af Amer) Random Glucose Calcium Iron 13 L TIBC 390 % Saturation 3 L Ferritin 3.6 L Total Bilirubin AST ALT Alkaline Phosphatase Total Protein Albumin Globulin Albumin/Globulin Ratio Blood Type B POSITIVE Antibody Screen Negative Crossmatch See Detail BBK History Checked Patient has bt Attending/Attestation - Attestation I have personally seen and examined this patient.: Yes I have fully participated in the care of the patient.: Yes I have reviewed all pertinent clinical information: Yes Notes (Text): 04/30/18 17:46 Agree with findings and plan as above. Patient to receive 2 units PRBC and then likely discharge in AM. Strongly advised again to follow up with OBGYN.
[2018-04-30 17:07] LABS: IRON 13 ug/dL (37-170)
[2018-04-30 17:16] LABS: % IRON SATURATION 3 % (20-55); TOTAL IRON BINDING CAPACITY 390 ug/dL (250-450)
[2018-04-30] MEDS ORDERED: Influenza Vaccine 60 MCG/0.5 ML SYR (3 yr & up) IM ONE (19:42)
[2018-05-01 01:42] VITALS: TEMP 98.2
[2018-05-01 07:17] LABS: BASO # 0.1 K/uL (0.0-0.2); BASO % 1.2 % (0.0-2.0); EOS # 0.2 K/uL (0.0-0.7); EOS % 3.4 % (0.0-4.0); HEMOGLOBIN 9.2 g/dL (12.0-16.0); LYMPH # 1.9 K/uL (1.0-4.3); LYMPH % 33.5 % (20.0-40.0); MEAN CELL VOLUME 67.4 fl (81.0-99.0); MEAN CORPUSCULAR HEMOGLOBIN 21.6 pg (27.0-31.0); MEAN CORPUSCULAR HGB CONC 32.1 g/dL (33.0-37.0); MEAN PLATELET VOLUME 7.6 fl (7.2-11.7); MONO # 0.6 K/uL (0.0-0.8); MONO % 10.3 % (0.0-10.0); NEUT # 2.9 K/uL (1.8-7.0); NEUT % 51.6 % (50.0-75.0); NRBC % 0.5 % (0.0-0.0); RBC 4.24 Mil/uL (3.80-5.20); RED CELL DISTRIBUTION WIDTH 20.1 % (11.5-14.5); WHITE BLOOD COUNT 5.7 K/uL (4.8-10.8)
[2018-05-01 09:21] VITALS: RESP 19
--- NOTE | 2018-05-01 09:55 | CP.PCM.DIS ---
Addendum entered and electronically signed by Kevin Fierro MD 05/01/18 15:00: Patient seen and examined.All chart and clinical data reviewed.Case discussed with resident.Agree with assessment and discharge planning. 47 y/o with PMH abnormal uterine bleed with anemia admitted for symptomatic anemia and transfused 2 unit PRBC. Post transfusion Hgb 9, feeling better with no symptoms. Ob consulted and recommended outpatient follow up Venofer IV given for iron deficiency Will discharge patient home on PO ferrous sulfate Started Lisinopril 10 mg PO for uncontrolled BP Counselled patient to follow up with OB clinic and [facility] DX Symptomatic anemia chronic blood loss anemia abnormal uterine bleed Uterine fibroids iron deficiency anemia hypertension Original Note: Provider - Provider Date of Admission: 04/30/18 13:09 Attending physician: Fartun Bob DO Time Spent in preparation of Discharge (in minutes): 35 Diagnosis - Discharge Diagnosis (1) Hypertension Status: Acute (2) Symptomatic anemia Status: Acute Priority: Medium Hospital Course - Lab Results Lab Results: Most Recent Lab Values WBC 5.7 K/uL (4.8-10.8) 05/01/18 05:30 RBC 4.24 Mil/uL (3.80-5.20) 05/01/18 05:30 Hgb 9.2 g/dL (12.0-16.0) L D 05/01/18 05:30 Hct 28.6 % (34.0-47.0) L 05/01/18 05:30 MCV 67.4 fl (81.0-99.0) L D 05/01/18 05:30 MCH 21.6 pg (27.0-31.0) L 05/01/18 05:30 MCHC 32.1 g/dL (33.0-37.0) L 05/01/18 05:30 RDW 20.1 % (11.5-14.5) H 05/01/18 05:30 Plt Count 404 K/uL (130-400) H 05/01/18 05:30 MPV 7.6 fl (7.2-11.7) 05/01/18 05:30 Neut % (Auto) 51.6 % (50.0-75.0) 05/01/18 05:30 Lymph % (Auto) 33.5 % (20.0-40.0) 05/01/18 05:30 [place] % (Auto) 10.3 % (0.0-10.0) H 05/01/18 05:30 Eos % (Auto) 3.4 % (0.0-4.0) 05/01/18 05:30 Baso % (Auto) 1.2 % (0.0-2.0) 05/01/18 05:30 Neut # (Auto) 2.9 K/uL (1.8-7.0) 05/01/18 05:30 Lymph # (Auto) 1.9 K/uL (1.0-4.3) 05/01/18 05:30 [place] # (Auto) 0.6 K/uL (0.0-0.8) 05/01/18 05:30 Eos # (Auto) 0.2 K/uL (0.0-0.7) 05/01/18 05:30 Baso # (Auto) 0.1 K/uL (0.0-0.2) 05/01/18 05:30 PT 11.1 Seconds (9.8-13.1) 04/30/18 12:40 INR 1.0 04/30/18 12:40 APTT 27.8 Seconds (25.6-37.1) 04/30/18 12:40 Sodium 139 mmol/l (132-148) 04/30/18 12:40 Potassium 4.2 MMOL/L (3.6-5.0) 04/30/18 12:40 Chloride 108 mmol/L (98-107) H 04/30/18 12:40 Carbon Dioxide 21 mmol/L (22-30) L 04/30/18 12:40 Anion Gap 14 (10-20) 04/30/18 12:40 BUN 14 mg/dl (7-17) 04/30/18 12:40 Creatinine 0.9 mg/dl (0.7-1.2) 04/30/18 12:40 Est GFR ( Amer) > 60 04/30/18 12:40 Est GFR (Non-Af Amer) > 60 04/30/18 12:40 Random Glucose 85 mg/dL (65-105) 04/30/18 12:40 Calcium 8.8 mg/dL (8.4-10.2) 04/30/18 12:40 Iron 13 ug/dL (37-170) L 04/30/18 16:48 TIBC 390 ug/dL (250-450) 04/30/18 16:48 % Saturation 3 % (20-55) L 04/30/18 16:48 Ferritin 3.6 ng/Ml (6.24-137.0) L 04/30/18 16:48 Total Bilirubin 0.3 mg/dl (0.2-1.3) 04/30/18 12:40 AST 45 U/L (14-36) H D 04/30/18 12:40 ALT 33 U/L (9-52) 04/30/18 12:40 Alkaline Phosphatase 48 U/L (38-126) 04/30/18 12:40 Total Protein 8.2 G/DL (6.3-8.2) 04/30/18 12:40 Albumin 4.3 g/dL (3.5-5.0) 04/30/18 12:40 Globulin 3.8 gm/dL (2.2-3.9) 04/30/18 12:40 Albumin/Globulin Ratio 1.1 (1.0-2.1) 04/30/18 12:40 Blood Type B POSITIVE 04/30/18 12:40 Antibody Screen Negative 04/30/18 12:40 Crossmatch See Detail 04/30/18 12:40 BBK History Checked Patient has bt 04/30/18 12:40 - Hospital Course Hospital Course: 47 YO female with PMHx of uterine fibroids and abnormal uterine bleeding is admitted for symptomatic anemia. Patient was transfused with 2 units of PRBC and h/h remains stable post transfusion. Blood work was significant for low iron and ferritin, pt transfused with 1x 200mg of Venofer. During the hospitalization, pt was found to have elevated blood pressure, pt started on Lisinopril 10mg for better bp control. [facility]ACH[facility] was consulted, pt cleared for d/c home and encouraged to follow up [facility] outpatient. Will d/c patient home with PO meds, follow up with PMD and [facility]INE in 1 week. All questions were answered, ER precautions reviewed and follow up in [facility] strongly advised, risks of bleeding including discussed. Voyce [id number] Discharge Exam - Head Exam Head Exam: NORMAL INSPECTION - Eye Exam Eye Exam: EOMI - ENT Exam ENT Exam: Mucous Membranes Moist - Neck Exam Neck exam: Full Rom, Normal Inspection Additional comments: full ROM, no edema or erythema - Respiratory Exam Respiratory Exam: Clear to PA & Lateral, NORMAL BREATHING PATTERN. absent: Wheezes - Cardiovascular Exam Cardiovascular Exam: REGULAR RHYTHM, +S1, +S2 - GI/Abdominal Exam GI & Abdominal Exam: Normal Bowel Sounds, Soft. absent: Distended, Guarding, Tenderness - Extremities Exam Extremities exam: normal inspection - Neurological Exam Neurological exam: Alert, Oriented x3 - Skin Skin Exam: Normal Color Discharge Plan - Discharge Medications Prescriptions: Docusate Sodium [Colace] 100 mg PO DAILY #30 capsule Ferrous Sulfate 325 mg PO BID #60 tablet Lisinopril [Zestril] 10 mg PO DAILY #30 tab - Follow Up Plan Condition: FAIR Disposition: HOME/ ROUTINE Patient education suggested?: Yes Instructions: Heavy Periods (DC), Normocytic Normochromic Anemia (DC), Hypertension (DC) Additional Instructions: Please take PO meds as prescribed Please return to the ER with worsening bleeding, chest pain, dyspnea, fatigue, fever over 100.4 with Tylenol Please follow up with [facility]INE and PMD in 1 week Referrals: Anton Archer MD [Staff Provider] - [facility] [place] [Outside] [facility] [Outside]
[2018-05-01 10:11] VITALS: BP 147/84; PULSE 63
--- NOTE | 2018-05-01 14:04 | CP.PCM.PN ---
<FridaRacquel - Last Filed: 05/01/18 15:23> Subjective - Date & Time of Evaluation Date of Evaluation: 05/01/18 Time of Evaluation: 12:00 - Subjective Subjective: Consulted for 47-year-old female with PMHx of uterine fibroids and abnormal uterine bleeding with fatigue and weakness admitted for symptomatic anemia. Patient admits to heavy bleeding for 10-20 days monthly. She has previously seen Dr Rushing in the past for fibroids but was lost to follow up. She admits to fatigue and weakness at initial presentation but s/p transfusion currently denies dizziness, headache, nausea, weakness, fatigue, pallor, chest pain, and shortness of breath. Vaginal bleeding is now light spotting. MRI and Transvaginal U/S in Aug 2016 showed multiple uterine fibroids. Daughter and nurse bedside. Objective - Vital Signs/Intake and Output Vital Signs (last 24 hours): Temp Pulse Resp BP Pulse Ox 98.2 F 63 19 147/84 100 05/01/18 09:20 05/01/18 10:11 05/01/18 09:20 05/01/18 10:11 05/01/18 09:20 Intake and Output: 05/01/18 05/01/18 06:59 18:59 Intake Total 100 Balance 100 - Medications Medications: Current Medications Ibuprofen (Motrin Tab) 400 mg PO Q6H PRN PRN Reason: Pain, Mild (1-3) Last Admin: 05/01/18 10:09 Dose: 400 mg Lisinopril (Zestril) 10 mg PO DAILY ROSANNE Last Admin: 05/01/18 10:11 Dose: 10 mg - Labs Labs: 05/01/18 05:30 04/30/18 12:40 PT 11.1 Seconds (9.8-13.1) 04/30/18 12:40 INR 1.0 04/30/18 12:40 APTT 27.8 Seconds (25.6-37.1) 04/30/18 12:40 - Constitutional Appears: Well, Non-toxic - Head Exam Head Exam: ATRAUMATIC, NORMAL INSPECTION - Eye Exam Eye Exam: Normal appearance - Respiratory Exam Respiratory Exam: NORMAL BREATHING PATTERN - Cardiovascular Exam Cardiovascular Exam: +S1, +S2 - GI/Abdominal Exam GI & Abdominal Exam: Soft. absent: Tenderness - Extremities Exam Extremities Exam: Normal Capillary Refill - Neurological Exam Neurological Exam: Alert, Awake, Oriented x3 - Psychiatric Exam Psychiatric exam: Normal Affect, Normal Mood - Skin Skin Exam: Normal Color Assessment and Plan - Assessment and Plan (Free Text) Assessment: 47 yo female with PMHx of uterine fibroids and abnormal uterine bleeding is admitted for symptomatic anemia. Symptomatic Anemia secondary to abnormal uterine bleeding -Hg 6.5 at presentation, s/p 2 PRBC now 9.2 -Management as per Internal medicine team, PO Ferrous Sulfate 325 mg PO BID #60 tablet -Follow up with [facility], [facility] information reviewed with patient <Jordi Casper - Last Filed: 05/02/18 17:11> Objective - Vital Signs/Intake and Output Vital Signs (last 24 hours): Temp Pulse Resp BP Pulse Ox 98.2 F 63 19 147/84 100 05/01/18 09:20 05/01/18 10:11 05/01/18 09:20 05/01/18 10:11 05/01/18 09:20 - Labs Labs: 05/01/18 05:30 04/30/18 12:40 PT 11.1 Seconds (9.8-13.1) 04/30/18 12:40 INR 1.0 04/30/18 12:40 APTT 27.8 Seconds (25.6-37.1) 04/30/18 12:40 Attending/Attestation - Attestation I have personally seen and examined this patient.: No I have fully participated in the care of the patient.: Yes I have reviewed all pertinent clinical information, including history, physical exam and plan: Yes Notes (Text): 05/02/18 17:10 Patient asked to follow up with the public health outreach worker at the [facility] upon discharge from the hospital
--- NOTE | 2018-05-01 17:12 | CARD ---
APPROVED REPORT Date of service: 04/30/2018 EKG Measurement Heart [id number] <Conclusion> Normal sinus rhythm Nonspecific T wave abnormality Abnormal ECG
== END 2018-05-01 14:00 | disposition home or self-care (01) ==
LOC: H.ER 10:55 → INTOOBSV 13:09 → H.ERHOLD 13:09 → H.MEDSURG1 18:15
PROVIDERS: ADMIT Student in an Organized Health Care Education/Training Program; ATTEND Student in an Organized Health Care Education/Training Program
DX: D50.0 Iron deficiency anemia secondary to blood loss (chronic) (principal); I10 Essential (primary) hypertension; Z82.49 Family history of ischemic heart disease and other diseases of the circulatory system; N92.0 Excessive and frequent menstruation with regular cycle; D25.9 Leiomyoma of uterus, unspecified; D63.8 Anemia in other chronic diseases classified elsewhere
CPT/HCPCS: 36415; 36430; 71045; 80053; 81025; 82728; 83540; 83550; 85025; 85610; 85730; 86850; 86900; 86920; 90674; 93005; 96360; 99285; G0008; G0378; J1756; J7030; P9051